=== PATIENT | female | born 1945 | race Caucasian/White ===

== ENCOUNTER → 2016-05-18 | Outpatient (CLI) | payer OTHER | LOC: FIMAGING 15:26 | PROVIDERS: ATTEND Nurse Practitioner | DX: Z13.6 Encounter for screening for cardiovascular disorders (principal); F17.210 Nicotine dependence, cigarettes, uncomplicated; Z85.9 Personal history of malignant neoplasm, unspecified ==

== ENCOUNTER → 2016-06-22 | Outpatient (CLI) | payer OTHER | LOC: FIMAGING 14:40 | PROVIDERS: ATTEND Nurse Practitioner | DX: Z13.6 Encounter for screening for cardiovascular disorders (principal); F17.210 Nicotine dependence, cigarettes, uncomplicated; Z85.9 Personal history of malignant neoplasm, unspecified ==

== ENCOUNTER → 2018-06-15 | Outpatient (CLI) | payer OTHER, MEDICARE | LOC: FIMAGING 14:21 | PROVIDERS: ATTEND Internal Medicine Gastroenterology | DX: R93.3 Abnormal findings on diagnostic imaging of other parts of digestive tract (principal) ==

== ENCOUNTER → 2018-06-20 | Outpatient (CLI) | payer OTHER, MEDICARE | LOC: FIMAGING 20:15 | PROVIDERS: ATTEND Internal Medicine Gastroenterology | DX: R93.3 Abnormal findings on diagnostic imaging of other parts of digestive tract (principal) ==

== ENCOUNTER → 2018-06-28 | Outpatient (CLI) | payer OTHER, MEDICARE ==
[~2018-06-28] MED LIST: GADOBUTROL 10 ML VIAL IVP ONE; GLUCAGON HCL 0.3 MG in SYRINGE 0.3 ML IVP ONE
== END ==
LOC: FIMAGING 14:18
PROVIDERS: ATTEND Internal Medicine Gastroenterology
DX: K50.90 Crohn's disease, unspecified, without complications (principal); K44.9 Diaphragmatic hernia without obstruction or gangrene; Z98.890 Other specified postprocedural states
CPT/HCPCS: 72196; 74182; A9585; J1610; 82565-PO